=== PATIENT | female | born 1970 | race Caucasian/White ===

== ENCOUNTER → 2016-04-27 | Outpatient (CLI) | payer OTHER ==
--- NOTE | 2016-04-27 13:47 | MA ---
Diagnostic Digital Mammogram left Breast Clinical Indications: Follow up possible developing asymmetric density. Technique: Compression was obtained in CC, mediolateral oblique, and 90-degree lateral views of the left breast. This examination is processed by the [employer] computer-aided detection system. Comparison: April 13, 2016; January 01, 2015; and studies dating back to January 16, 2012 Breast density: C; The left breast is heterogeneously dense, which may obscure small masses. Findings: CAD was reviewed. On additional views obtained, the previous identified density is not well delineated. This could be o bscured by the adjacent dense breast parenchymal tissue. There is no associated microcalcification. Impression: Benign findings. BI-RADS 2. However, a small nodule could potentially be obscured by marissa cent dense breast tissue. Subsequent ultrasound was performed for further characterization.
--- NOTE | 2016-04-27 14:37 | US ---
Ultrasound left breast History: Questionable nodule on tomographic mammography images upper left breast near the 12 o'clock position. Findings: Ultrasound of the upper left breast demonstrates normal dense underlying breast parenchymal tissue without solid or cystic mass. Impression: 1. Benign findings left breast ultrasound with dense breast tissue identified. 2. No significant abnormality identified around the 12 o'clock position left breast to correspond wit h density seen on digital breast tomosynthesis sequence. Consider 6 month followup tomosynthesis imag ing of the left breast in MLO projection to confirm stability and benign features. BI-RADS 3 The results of this study were reviewed with the patient.
== END ==
LOC: FIMAGING 12:40
PROVIDERS: ATTEND Obstetrics & Gynecology
DX: R92.2 Inconclusive mammogram (principal)
CPT/HCPCS: G0206

== ENCOUNTER → 2017-05-03 | Outpatient (CLI) | payer BC | LOC: FIMAGING 08:56 | PROVIDERS: ATTEND Obstetrics & Gynecology | DX: Z12.31 Encounter for screening mammogram for malignant neoplasm of breast (principal) ==

== ENCOUNTER → 2018-07-04 | Outpatient (CLI) | payer OTHER | LOC: FIMAGING 15:19 | PROVIDERS: ATTEND Obstetrics & Gynecology | DX: Z12.31 Encounter for screening mammogram for malignant neoplasm of breast (principal) ==